=== PATIENT | female | born 1975 | race Caucasian/White ===

== ENCOUNTER 2017-01-24 13:07 | Emergency (ER) | payer OTHER ==
[2017-01-24 14:42] LABS: HEMOGLOBIN 14.2 gm/dl (12.3-15.3); RED BLOOD COUNT 4.65 M/UL (4.00-5.10)
[2017-01-24 15:03] LABS: BUN/CREATININE RATIO 15 (0-10)
== END 2017-01-24 18:00 | disposition home or self-care (01) ==
LOC: ER1 13:07
PROVIDERS: Physician Assistant Medical
DX: R10.13 Epigastric pain (principal); R11.0 Nausea; F17.210 Nicotine dependence, cigarettes, uncomplicated; Z91.040 Latex allergy status
CPT/HCPCS: 36415; 80053; 81001; 82150; 83690; 84484; 85025; 93005; 96361; 96374; 99284; C9113; J2405; J7030; Q9962